=== PATIENT | male | born 1960 | race Caucasian/White ===

== ENCOUNTER 2020-03-01 12:56 | Emergency (ER) | payer OTHER ==
[~2020-03-01] VITALS: Ht 180.3 cm; Wt 83.9 kg
[2020-03-01 13:41] VITALS: BP 116/79
[2020-03-01] MEDS ORDERED: Bamlanivimab Fact Sheet MISC ONE (13:45)
[2020-03-01] MEDS ORDERED: Bamlanivimab 700 MG in NS 275 ML IVPB SCH (13:45)
[2020-03-01] MEDS ORDERED: AMOXICILLIN500 MG ORAL (15:15)
[2020-03-01 15:34] VITALS: BP 123/75
[2020-03-01 16:35] VITALS: BP 123/75
--- NOTE | 2020-03-07 06:57 | Emergency Room Report ---
History of Present Illness General Chief Complaint: General Complaint Source: Patient, Medical Record Present Illness HPI 59-year-old male presents for evaluation. Covid positive. Mild cough. Was referred here for antibody infusion. Denies fevers or chills. Denies chest pain or shortness of breath. States he was high risk because of hypertension and prone to clotting. No other aggravating relieving factors. Denies any other associated symptoms Allergies: Coded Allergies: No Known Allergies (Unverified , 03/01/20) COVID-19 Screening Contact w/high risk pt: No Experienced COVID-19 symptoms?: Yes COVID-19 Testing performed [employer]: Yes COVID-19 Screening: Positive COVID-19 COVID-19 Testing Source: PR[employer] Patient History Past Medical History: CVA/TIA, other - DVT Past Surgical History: none Pertinent Family History: none Social History: Denies: smoking, alcohol use, drug use Immunizations: UTD Reviewed Nursing Documentation: PMH: Agreed; PSxH: Agreed Nursing Documentation-PMH Past Medical History: No History, Except For Hx Cardiac Problems: Yes - Left leg blood clots Hx Neurological Problems: Yes - TIA Review of Systems All Other Systems: negative except mentioned in HPI Physical Exam Sp02 EP Interpretation: reviewed, normal General Appearance: no apparent distress, alert, GCS 15, non-toxic Head: normocephalic, atraumatic Eyes: bilateral eye normal inspection, bilateral eye PERRL ENT: hearing grossly normal, normal pharynx, no angioedema, normal voice Neck: full range of motion, supple/symm/no masses Respiratory: chest non-tender, lungs clear, normal breath sounds, speaking full sentences Cardiovascular #1: regular rate, rhythm, no edema Cardiovascular #2: 2+ carotid (R), 2+ carotid (L), 2+ radial (R), 2+ radial (L), 2+ dorsalis pedis (R), 2+ dorsalis pedis (L) Gastrointestinal: normal bowel sounds, non tender, soft, non-distended, no guarding, no rebound Rectal: deferred Genitourinary: normal inspection, no CVA tenderness Musculoskeletal: back normal, normal range of motion, gait/station normal, non- tender Neurologic: alert, motor strength/tone normal, oriented x3, sensory intact, responsive, speech normal Psychiatric: judgement/insight normal, memory normal, mood/affect normal, no suicidal/homicidal ideation Reflexes: 3+ bicep (R), 3+ bicep (L), 3+ tricep (R), 3+ tricep (L), 3+ knee (R), 3+ knee (L) Lymphatic: no adenopathy Medical Decision Making Diagnostic Impression: Primary Impression: COVID-19 ER Course Hospital Course 59-year-old male referred to ED for Bamlanivmab infusion. COVID+ Clinical course Patient placed on stretcher. After initial history, physical exam reveals a adria in no acute distress. Bilateral TM unremarkable. No pharyngeal erythema. No tonsillar exudates. No lymphadenopathy. lungs clear. abdomen soft. Patient did meet criteria for Bamlanivimab infusion. Due to age, history of hypertension and prone to clotting. Patient does not require admission. Vitals stable. Not hypoxic. Patient infused without incident. In isolation room. Observed for 1 hour. Safe for discharge with close outpatient follow-up Diagnosis - COVID 19 Stable and discharged home. Instructed to followup with PMD. Return to ED if symptoms recur or worsen Status: improved Disposition: HOME, SELF-CARE Condition: Stable Scripts Amoxicillin* (AMOXIL*) 500 Mg Capsule 500 MG ORAL THREE TIMES A DAY, #21 CAP Prov: Thomas Miller MD 03/01/20 Patient Instructions: Upper Respiratory Infection, Adult, [id number] Thomas Miller MD Mar 07, 2020 06:57
== END 2020-03-01 16:35 | disposition home or self-care (01) ==
LOC: EMR 14:21
DX: U07.1 COVID-19 (principal); Z86.73 Personal history of transient ischemic attack (TIA), and cerebral infarction without residual deficits; Z86.718 Personal history of other venous thrombosis and embolism
CPT/HCPCS: 96365; 99284; J7050; Q0239